=== PATIENT | female | born 1980 | race Caucasian/White ===

== ENCOUNTER 2016-12-12 02:19 | Emergency (ER) | payer MEDICARE, BC ==
[~2016-12-12] VITALS: Ht 162.6 cm; Wt 107.0 kg
[~2016-12-12 02:19] MED LIST: ACET500C5 PO; API SQ; ASPI81TA3 GTB; ATOR10TA65 PO; CANA300T PO; CEPH-443 PO; DEXL60CA2 PO; FAMO40TA52 PO; HYDR-762 PO; IBUP800T25 PO; LANT3I SC; LISI2.5T59 PO; ONDA4TAB35 PO; OXCA150T3 PO; PERCOCET PO; SERT100T; TRIH2TAB2 PO
[2016-12-12 02:22] VITALS: Ht 162.6 cm; Wt 107.0 kg
[2016-12-12] MEDS ORDERED: ONDANSETRON 4 MG INJ IV STA (02:30)
[2016-12-12] MEDS ORDERED: morphine 4 MG/ML VIAL IV STA (02:30)
[2016-12-12] MEDS ORDERED: SOD CHLORIDE 0.9% 1,000 ML IV STA (02:30)
[2016-12-12] MEDS ORDERED: FAMOTIDINE 20 MG INJ IV STA (02:30)
[2016-12-12 02:57] LABS: ABNORMAL IP MESSAGE 1; HEMATOCRIT 47.3 % (37.0-47.0); HEMOGLOBIN 15.9 g/dl (12.0-16.0); MEAN CORPUSCULAR HEMOGLOBIN 27.6 pg (29.0-33.0); MEAN CORPUSCULAR HGB CONC 33.6 g/dl (32.0-37.0); PLATELET COUNT 333 10^3/UL (140-415); RED BLOOD COUNT 5.77 10^6/ul (4.20-5.40); RED CELL DISTRIBUTION WIDTH 12.9 % (11.5-14.5)
[2016-12-12 03:08] LABS: ADD UMIC NO; UR ASCORBIC ACID NEGATIVE (NEGATIVE); UR BACTERIA FEW /HPF (NONE SEEN); UR BILIRUBIN (Dip) NEGATIVE (NEGATIVE); UR BLOOD (Dip) NEGATIVE (NEGATIVE); UR CLARITY SLIGHTLY CLOUDY (CLEAR); UR COLOR YELLOW (YELLOW); UR GLUCOSE (Dip) 3+ mg/dL (NEGATIVE); UR KETONES (Dip) TRACE mg/dL (NEGATIVE); UR LEUKOCYTE ESTERASE (Dip) NEGATIVE Leu/ul (NEGATIVE); UR NITRITE (Dip) NEGATIVE (NEGATIVE); UR RBC 17 /HPF (0-5); UR SPECIFIC GRAVITY (Dip) 1.044 (1.003-1.030); UR SQUAMOUS EPITHELIAL CELL MODERATE /HPF (FEW); UR TOTAL PROTEIN (Dip) NEGATIVE (NEGATIVE); UR UROBILINOGEN (Dip) NEGATIVE (NEGATIVE)
[2016-12-12 03:11] LABS: ALBUMIN 4.5 g/dl (3.3-4.9); ALBUMIN/GLOBULIN RATIO 1.55; BILIRUBIN,INDIRECT 0.2 mg/dl (0-1.1); BILIRUBIN,TOTAL 0.2 mg/dl (0.2-1.3); CALCIUM 9.3 mg/dl (8.4-10.2); CREATININE 0.57 mg/dl (0.44-1.00); POTASSIUM 3.2 mmol/L (3.5-5.1); TOTAL PROTEIN 7.4 g/dl (6.1-8.1)
[2016-12-12] MEDS ORDERED: INSU200I4 SQ (03:28)
[2016-12-12] MEDS ORDERED: NOVO3I SC (03:28)
[2016-12-12] MEDS ORDERED: LIDOCAINE/MYLANTA 40 ML BTL PO ONE (03:30)
[2016-12-12 03:36] LABS: POSITIVE DIFF @See below
[2016-12-12 03:39] LABS: BASOPHIL # 0.1 10^3/ul (0.0-0.1); EOSINOPHILS # 0.1 10^3/ul (0.0-0.5); LYMPHOCYTES # 3.8 10^3/ul (0.8-2.9); MONOCYTE # 0.4 10^3/ul (0.3-0.9); REACTIVE LYMPHOCYTES% (M) 4 % (0-0)
[2016-12-12] MEDS ORDERED: HYDROmorphONE 1 MG/ML SYG IV ONE (03:54)
--- NOTE | 2016-12-12 04:40 | RADRPT ---
PROCEDURE: CT of the abdomen and pelvis without contrast CLINICAL INDICATION: Abdominal pain. TECHNIQUE: Spiral CT images through the abdomen and pelvis without the use of contrast. The admin istered radiation dose is CTDI 22.85 and DLP 1379.7. One or more of the following dose reduction te chniques were used: automated exposure control, adjustment of the mA and/or kV according to patient size, or use of iterative reconstruction technique. COMPARISON: 11/16/2015 FINDINGS: Lack of oral and intravenous contrast somewhat limits evaluation. Slight dependent atelectasis of the lung bases is seen. No pleural effusion is seen. Hepatosplenomegaly is again seen. Hepatic steatosis is less apparent than on the prior study. Smal l clip or calcification along the inferior medial liver is again seen. Clips are seen from prior ch olecystectomy. The adrenals, left kidney, and pancreas are unremarkable in appearance. There are 2 tiny nonobstructing calyceal stones in the mid right kidney. There is mild right renal pelvocaliec tasis, unchanged. No stones are seen in the ureters or bladder. Again seen are changes from probab le supracervical hysterectomy with large Nabothian cyst. No gross adnexal region abnormality. Unre markable urinary bladder. . There is no evidence for bowel obstruction, free air, or abscess. The appendix is not definitely seen but no pericecal inflammatory process is seen.. there is no evidenc e for diverticulitis. Mild stranding of the subcutaneous soft tissues is seen. No adenopathy or asc ites is seen. No bony abnormality is seen.. IMPRESSION: Tiny nonobstructing right renal stones and minimal pelvicaliectasis. No definite ureter or bladder stones.. Other stable findings as above. RPTAT: [facility] Physician Jacqui Date Time Electronically viewed and signed by Physician Jacqui on 12/12/2016 04:39 LE/
--- NOTE | 2016-12-12 05:07 | ERD ---
ER Documentation Chief Complaint Date/Time DATE: 12/12/16 TIME: 05:06 Chief Complaint upper abd pain x 5 days HPI 36 year female epigastric abdominal pain for 5 days. Pain is mild to moderate intensity. No fevers no chills. No nausea. No vomiting. Pain is mild to moderate intensity with aspirin relieving factors per the patient. ROS All systems reviewed and are negative except as per history of present illness. Medications Home Meds Active Scripts Ondansetron Hcl* (Zofran* ODT) 4 mg -ODT Tab.disper, 4 MG PO Q6 Y for NAUSEA AND /OR VOMITING, #10 TAB Prov:AGATHA STERN. PHILATELIC CONSULTANT 11/16/15 Acetaminophen* (Tylophen*) 500 Mg Capsule, 1 CAP PO Q6H Y for PAIN AND OR ELEVATED TEMP, #20 CAP Prov:AGATHA STERN. PHILATELIC CONSULTANT 11/16/15 Reported Medications Insulin Aspart* (Novolog Insulin Pen*) 100 Unit/Ml Soln, 60 UNIT SC WITH BREAKFAST, EA 12/12/16 Insulin Degludec (Tresiba Flextouch U-200) 200 Unit/1 Ml Insuln.pen, 100 UNIT SQ 12/12/16 Trihexyphenidyl Hcl* (Artane*) 2 Mg Tab, 2 MG PO BID, TAB 04/20/15 Atorvastatin Calcium (Atorvastatin Calcium) 10 Mg Tablet, 10 MG PO HS, #30 TAB 04/20/15 Famotidine* (Famotidine*) 40 Mg Tablet, 40 MG PO HS, TAB 04/20/15 Canagliflozin (Invokana) 300 Mg Tablet, 300 MG PO DAILY, TAB 04/20/15 Dexlansoprazole (Dexilant) 60 Mg Darryn., 60 MG PO DAILY, CAP 04/20/15 Lisinopril* (Lisinopril*) 2.5 Mg Tablet, 2.5 MG PO DAILY, TAB 04/20/15 Aspirin (Aspirin) 81 Mg Chew, 81 MG GTB DAILY 01/02/13 Sertraline Hcl* (Zoloft*) 100 Mg Tablet 06/15/09 Discontinued Reported Medications Insulin Glargine* (Lantus*) 100 Unit/Ml Soln, 40 UNIT SC BID, EA 04/20/15 Insulin Glulisine (Apidra) 100 Units/Ml Soln, 60 UNITS SQ WITH MEALS 04/20/15 Oxcarbazepine* (Trileptal*) 150 Mg Tablet, 150 MG PO BID, TAB 04/20/15 Discontinued Scripts Hydrocodone Bit-Acetaminophen* ([place]*) 10-325 Mg Tablet, 1 TAB PO Q6 Y for PAIN , #20 TAB Prov:TREASURE KEITA NP 04/26/15 Cephalexin* (Keflex*) 500 Mg Capsule, 500 MG PO QID for 10 Days, CAP Prov:TREASURE KEITA NP 04/26/15 Oxycodone Hcl/Acetaminophen (Percocet) 1 Tab Tab, 2 TAB PO Q4H Y for SEVERE PAIN LEVEL 7-10, #30 TAB Prov:NAVEEN GRIMES MD 04/22/15 Ibuprofen* (Ibuprofen*) 800 Mg Tab, 800 MG PO Q6, #40 TAB Prov:NAVEEN GRIMES MD 04/22/15 Allergies Allergies: Coded Allergies: sulfamethoxazole (Unverified Allergy, Severe, THROAT SWELLING,RASH, ) trimethoprim (Unverified Allergy, Severe, THROAT SWELLING,RASH, 12/12/16) prochlorperazine (Unverified Allergy, Unknown, 12/12/16) PMhx/Soc History of Surgery: Yes (iona Epstein) Anesthesia Reaction: No Hx Neurological Disorder: No Hx Respiratory Disorders: No Hx Cardiac Disorders: Yes (HTN) Hx Psychiatric Problems: No Hx Miscellaneous Medical Probl: Yes (DM) Hx Alcohol Use: No Hx Substance Use: No Hx Tobacco Use: No Smoking Status: Never smoker Physical Exam Vitals Vital Signs Date Time Temp Pulse Resp B/P Pulse Ox O2 Delivery O2 Flow Rate FiO2 12/12/16 04:32 65 18 111/56 98 Room Air 12/12/16 02:22 98.3 85 20 122/61 100 Physical Exam Const: [] Head: Atraumatic Eyes: Normal Conjunctiva ENT: Normal External Ears, Nose and Mouth. Neck: Full range of motion..~ No meningismus. Resp: Clear to auscultation bilaterally Cardio: Regular rate and rhythm, no murmurs Abd: Soft, non tender, non distended. Normal bowel sounds Skin: No petechiae or rashes Back: No midline or flank tenderness Ext: No cyanosis, or edema Neur: Awake and alert Psych: Normal Mood and Affect Result Diagram: 12/12/16 0240 12/12/16 0240 Results 24 hrs Laboratory Tests Test 12/12/16 02:40 White Blood Count 14.010^3/ul Red Blood Count 5.7710^6/ul Hemoglobin 15.9g/dl Hematocrit 47.3% Mean Corpuscular Volume 82.0fl Mean Corpuscular Hemoglobin 27.6pg Mean Corpuscular Hemoglobin Concent 33.6g/dl Red Cell Distribution Width 12.9% Platelet Count 68342^3/UL Mean Platelet Volume 9.0fl Neutrophils % 64.0% Lymphocytes % 27.0% Reactive Lymphocytes % (Manual) 4% Monocytes % 3.0% Eosinophils % 1.0% Basophils % 1.0% Nucleated Red Blood Cells % 0.0/100WBC Neutrophils # 9.010^3/ul Lymphocytes # 3.810^3/ul Reactive Lymphocytes # 0.510^3/ul Monocytes # 0.410^3/ul Eosinophils # 0.110^3/ul Basophils # 0.110^3/ul Nucleated Red Blood Cells # 10^3/ul Urine Color YELLOW Urine Clarity SLIGHTLY CLOUDY Urine pH 6.0 Urine Specific [place] 1.044 Urine Ketones TRACEmg/dL Urine Nitrite NEGATIVEmg/dL Urine Bilirubin NEGATIVEmg/dL Urine Urobilinogen NEGATIVEmg/dL Urine Leukocyte Esterase NEGATIVELeu/ul Urine Microscopic RBC 17/HPF Urine Microscopic WBC 1/HPF Urine Squamous Epithelial Cells MODERATE/HPF Urine Bacteria FEW/HPF Urine Hemoglobin NEGATIVEmg/dL Urine Glucose 3+mg/dL Urine Total Protein NEGATIVEmg/dl Sodium Level 142mmol/L Potassium Level 3.2mmol/L Chloride Level 102mmol/L Carbon Dioxide Level 24mmol/L Anion Gap 19 Blood Urea Nitrogen 13mg/dl Creatinine 0.57mg/dl Glucose Level 115mg/dl Calcium Level 9.3mg/dl Total Bilirubin 0.2mg/dl Direct Bilirubin 0.00mg/dl Indirect Bilirubin 0.2mg/dl Aspartate Amino Transf (AST/SGOT) 21IU/L Alanine Aminotransferase (ALT/SGPT) 39IU/L Alkaline Phosphatase 85IU/L Total Protein 7.4g/dl Albumin 4.5g/dl Globulin 2.90g/dl Albumin/Globulin Ratio 1.55 Lipase 82U/L Current Medications Medications (Trade) Dose Ordered Sig/Dante Route PRN Reason Start Time Stop Time Status Last Admin Dose Admin Sodium Chloride (NS) 1,000 ml @ 1,000 mls/hr Q1H STAT IV 12/12/16 02:30 12/12/16 03:29 DC 12/12/16 03:00 Morphine Sulfate (morphine) 4 mg ONCE STAT IV 12/12/16 02:30 12/12/16 02:32 DC 12/12/16 02:44 Ondansetron HCl (Zofran Inj) 4 mg ONCE STAT IV 12/12/16 02:30 12/12/16 02:32 DC 12/12/16 02:44 Famotidine (Pepcid Iv) 20 mg ONCE STAT IV 12/12/16 02:30 12/12/16 02:32 DC 12/12/16 02:44 Miscellaneous Medication (Gi Cocktail (2)) 40 ml ONCE ONCE PO 12/12/16 03:30 12/12/16 03:31 DC 12/12/16 03:31 Hydromorphone HCl (Dilaudid) 1 mg ONCE ONCE IV 12/12/16 03:54 12/12/16 03:55 DC 12/12/16 03:59 Procedures/MDM Medical decision-makin-year-old female abdominal pain of uncertain nonspecific etiology. At this point pain is resolved. Patient stable for outpatient management. Patient will be discharged home with [place] and Zofran. Follow-up in 8 hours for abdominal exams. Departure Diagnosis: Primary Impression: Abdominal pain Abdominal location: epigastric Qualified Code: R10.13 - Epigastric pain Condition: Stable SABRA SOLIS Dec 12, 2016 05:07
[2016-12-12] MEDS ORDERED: HYDR-902 PO (05:10)
[2016-12-12 05:33] VITALS: BP 115/68; PULSE 68; RESP 18
== END 2016-12-12 05:36 | disposition home or self-care (01) ==
LOC: E/R 02:19
DX: R10.13 Epigastric pain (principal); I10 Essential (primary) hypertension; E11.9 Type 2 diabetes mellitus without complications; Z79.4 Long term (current) use of insulin; Z79.82 Long term (current) use of aspirin
CPT/HCPCS: 36415; 74176; 80053; 81001; 83690; 85025; 96374; 96375; 99285; J1170; J2270; J2405; J7030; 81003

== ENCOUNTER 2017-01-03 03:09 | Emergency (ER) | END 2017-01-03 06:18 | disposition home or self-care (01) | DX: R10.9 Unspecified abdominal pain (principal); I10 Essential (primary) hypertension; E11.9 Type 2 diabetes mellitus without complications; Z79.4 Long term (current) use of insulin; Z79.82 Long term (current) use of aspirin ==